=== PATIENT | female | born 1960 | race African-American/Black ===

== ENCOUNTER 2017-10-28 07:24 | Emergency (ER) | payer OTHER, MEDICAID ==
[~2017-10-28] VITALS: Ht 160 cm; Wt 97.0 kg
[2017-10-28 08:59] VITALS: BP 149/91
== END 2017-10-28 09:00 | disposition home or self-care (01) ==
LOC: ER 08:10
DX: J06.9 Acute upper respiratory infection, unspecified (principal); I51.7 Cardiomegaly; I10 Essential (primary) hypertension
CPT/HCPCS: 71010; 99283

== ENCOUNTER 2020-07-31 07:27 | Emergency (ER) | payer OTHER ==
[~2020-07-31] VITALS: Ht 167.6 cm; Wt 102.0 kg
[2020-07-31] MEDS ORDERED: TRAMADOL 50MG TABLET PO ONE (08:00)
[2020-07-31 09:13] VITALS: BP 185/89
== END 2020-07-31 09:14 | disposition home or self-care (01) ==
LOC: ER 07:27
DX: S69.82XA Other specified injuries of left wrist, hand and finger(s), initial encounter (principal); W01.0XXA Fall on same level from slipping, tripping and stumbling without subsequent striking against object, initial encounter; Y93.01 Activity, walking, marching and hiking; Y92.89 Other specified places as the place of occurrence of the external cause
CPT/HCPCS: 73130; 99283